=== PATIENT | female | born 2000 | race Caucasian/White ===

== ENCOUNTER 2019-11-20 17:14 | Emergency (ER) | payer BC ==
[2019-11-20] MEDS ORDERED: SODIUM CHLORIDE 0.9% 1,000 ML IV ONE (18:24)
[2019-11-20 19:11] LABS: Basophils # (A) 0.1 k/uL (0-0.2); Basophils % (A) 1 %; Eosinophils # (A) 0.9 k/uL (0-0.7); Eosinophils % (A) 8 %; HCT 44.4 % (34.0-46.0); HGB 15.2 gm/dL (11.4-16.0); Lymphocytes # (A) 2.6 k/uL (1.0-4.8); Lymphocytes % (A) 23 %; MCH 30.8 pg (25.0-35.0); MCHC 34.2 g/dL (31.0-37.0); Monocytes # (A) 0.5 k/uL (0-1.0); Monocytes % (A) 4 %; Neutrophils # (A) 7.2 k/uL (1.3-7.7); Neutrophils % (A) 63 %; Platelet Count 360 k/uL (150-450); RBC 4.93 m/uL (3.80-5.40); RDW 12.9 % (11.5-15.5); WBC 11.4 k/uL (3.8-10.6)
[2019-11-20 19:24] LABS: ALT 135 U/L (4-34); AST 78 U/L (14-36); African American GFR (CKD) >90 (>60 ml/min/1.73 sqM); Albumin 4.9 g/dL (3.5-5.0); Alkaline Phosphatase 96 U/L (38-126); Anion Gap 10 mmol/L; Blood Urea Nitrogen 12 mg/dL (7-17); Calcium 9.5 mg/dL (8.4-10.2); Carbon Dioxide 24 mmol/L (22-30); Chloride 104 mmol/L (98-107); Glucose 78 mg/dL (74-99); Non-African American GFR(CKD) >90 (>60 ml/min/1.73 sqM); Potassium 4.2 mmol/L (3.5-5.1); Sodium 138 mmol/L (137-145); Total Bilirubin 0.5 mg/dL (0.2-1.3); Total Protein 8.3 g/dL (6.3-8.2)
[2019-11-20 19:39] LABS: INR 0.9 (<1.2); Partial Thromboplastin Time 24.6 sec (22.0-30.0); Prothrombin Time 9.8 sec (9.0-12.0)
--- NOTE | 2019-11-20 20:25 | US ---
EXAMINATION TYPE: US transvaginal DATE OF EXAM: 11/20/2019 COMPARISON: NONE CLINICAL HISTORY: Heavy vaginal bleeding. Heavy vaginal bleeding. Patient is on day 14 of bleeding. TECHNIQUE: Transvaginal (TV). Date of LMP: 11/06/2019 EXAM MEASUREMENTS: Uterus: 7.3 x 4.7 x 4.1 cm Endometrial Stripe: 1.04 cm Right Ovary: 4.0 x 2.4 x 2.8 cm Left Ovary: 3.9 x 2.5 x 2.8 cm 1. Uterus: Retroverted Hypoechoic areas seen in the cervix. Largest: 0.6 x 0.6 x 0.8 cm. 2. Endometrium: Measures 1.04 cm. Measures thick. 3. Right Ovary: Measures slightly enlarged. Follicles seen. 4. Left Ovary: Measures slightly enlarged. Follicles seen. Spectral, color and waveform doppler imaging shows arterial and venous flow within the ovaries; the re is no evidence for ovarian torsion. 5. Bilateral Adnexa: Appear to be wnl. 6. Posterior cul-de-sac: Fluid is seen. IMPRESSION: No adnexal mass or free fluid. No evidence of ovarian torsion. Normal endometrium.
--- NOTE | 2019-11-20 20:40 | ED ---
General Adult HPI - General Chief complaint: Vaginal Bleeding Stated complaint: excessive menstrual bleeding Time Seen by Provider: 11/20/19 18:12 Source: patient Mode of arrival: ambulatory Limitations: no limitations - History of Present Illness Initial comments: 19-year-old female patient presents to the emergency department today for evaluation of heavy vaginal bleeding for the last 2 weeks. Patient states that she started her period at the normal time however the bleeding was heavier than usual. States that she is passing clots the size of quarters. States that the bleeding has been heavy every day since its onset. States that she is changing her pad every hour. Patient states she is having lower abdominal cramping consistent with her usual menstrual cramping. She denies any fever or chills. Patient states she has been feeling somewhat more weak and rundown than usual. She denies any history of clotting disorders. Denies any use of anticoagulants or antiplatelet medications. Patient states she has currently being evaluated for possible vasovagal syndrome versus seizures. Patient denies any recent rash, fever, chills, shortness breath, chest pain, nausea, vomiting, diarrhea, constipation, back pain, numbness, tingling, dizziness, hematuria, dysuria, urinary urgency, urinary frequency, headache, visual changes, or any other complaints. - Related Data Allergies Allergy/AdvReac Type Severity Reaction Status Date / Time No Known Allergies Allergy Verified 11/20/19 17:43 Review of Systems ROS Statement: Those systems with pertinent positive or pertinent negative responses have been documented in the HPI. ROS Other: All systems not noted in ROS Statement are negative. Past Medical History Past Medical History: No Reported History History of Any Multi-Drug Resistant Organisms: None Reported Additional Past Surgical History / Comment(s): possible seizure disorder Past Psychological History: Anxiety, Depression Smoking Status: Never smoker Past Alcohol Use History: None Reported Past Drug Use History: Marijuana General Exam Limitations: no limitations General appearance: alert, in no apparent distress, other (This is a well- developed, well-nourished adult female patient in no acute distress, however vital signs upon presentation are temperature 98.5F, pulse 74, respirations 16, blood pressure 146/79, pulse ox 97% on room air.) Eye exam: Present: normal appearance, PERRL, EOMI. Absent: scleral icterus, conjunctival injection, periorbital swelling ENT exam: Present: normal exam, normal oropharynx, mucous membranes moist Respiratory exam: Present: normal lung sounds bilaterally. Absent: respiratory distress, wheezes, rales, rhonchi, stridor Cardiovascular Exam: Present: regular rate, normal rhythm, normal heart sounds. Absent: systolic murmur, diastolic murmur, rubs, gallop, clicks GI/Abdominal exam: Present: soft, normal bowel sounds. Absent: distended, tenderness, guarding, rebound, rigid External exam: Present: normal external exam Speculum exam: Present: vaginal bleeding (Moderate dark red vaginal bleeding, small clots noted in the vaginal vault.), other (Cervix appears normal) Neurological exam: Present: alert, oriented X3, CN II-XII intact Psychiatric exam: Present: normal affect, normal mood Skin exam: Present: warm, dry, intact, normal color. Absent: rash Course Vital Signs 11/20/19 11/20/19 17:41 20:56 Temperature 98.5 F 98.4 F Pulse Rate 74 72 Respiratory 16 18 Rate Blood Pressure 146/79 132/78 O2 Sat by Pulse 97 100 Oximetry Medical Decision Making - Medical Decision Making 19-year-old female patient presented to the emergency department today for evaluation of heavy vaginal bleeding for the last 2 weeks. Physical examination reveals mild suprapubic abdominal tenderness. Skin is pink, warm, dry. Vital signs are within normal ranges. Labs reviewed and are unremarkable. HCG is negative. Ultrasound was obtained and showed no abnormalities. Patient did take 3 days of a control medication regimen a side effects and had to stop this. We discuss this as a cause for her symptoms. She'll be discharged vomited franchise business consultant or her primary care physician for recheck in 1-2 days. Return parameters were discussed in detail. She verbalizes understanding and agrees with this plan. - Lab Data Result diagrams: 11/20/19 18:40 11/20/19 18:40 Lab Results 11/20/19 11/20/19 11/20/19 Range/Units 18:40 18:40 18:40 WBC 11.4 H (3.8-10.6) k/uL RBC 4.93 (3.80-5.40) m/uL Hgb 15.2 (11.4-16.0) gm/dL Hct 44.4 (34.0-46.0) % MCV 90.0 (80.0-100.0) fL MCH 30.8 (25.0-35.0) pg MCHC 34.2 (31.0-37.0) g/dL RDW 12.9 (11.5-15.5) % Plt Count 360 (150-450) k/uL Neutrophils % 63 % Lymphocytes % 23 % Monocytes % 4 % Eosinophils % 8 % Basophils % 1 % Neutrophils # 7.2 (1.3-7.7) k/uL Lymphocytes # 2.6 (1.0-4.8) k/uL Monocytes # 0.5 (0-1.0) k/uL Eosinophils # 0.9 H (0-0.7) k/uL Basophils # 0.1 (0-0.2) k/uL PT (9.0-12.0) sec INR (<1.2) APTT (22.0-30.0) sec Sodium 138 (137-145) mmol/L Potassium 4.2 (3.5-5.1) mmol/L Chloride 104 (98-107) mmol/L Carbon Dioxide 24 (22-30) mmol/L Anion Gap 10 mmol/L BUN 12 (7-17) mg/dL Creatinine 0.74 (0.52-1.04) mg/dL Est GFR (CKD-EPI)AfAm >90 (>60 ml/min/1.73 sqM) Est GFR (CKD-EPI)NonAf >90 (>60 ml/min/1.73 sqM) Glucose 78 (74-99) mg/dL Calcium 9.5 (8.4-10.2) mg/dL Total Bilirubin 0.5 (0.2-1.3) mg/dL AST 78 H (14-36) U/L ALT 135 H (4-34) U/L Alkaline Phosphatase 96 (38-126) U/L Total Protein 8.3 H (6.3-8.2) g/dL Albumin 4.9 (3.5-5.0) g/dL Urine HCG, Qual Not Detected (Not Detectd) 11/20/19 Range/Units 18:40 WBC (3.8-10.6) k/uL RBC (3.80-5.40) m/uL Hgb (11.4-16.0) gm/dL Hct (34.0-46.0) % MCV (80.0-100.0) fL MCH (25.0-35.0) pg MCHC (31.0-37.0) g/dL RDW (11.5-15.5) % Plt Count (150-450) k/uL Neutrophils % % Lymphocytes % % Monocytes % % Eosinophils % % Basophils % % Neutrophils # (1.3-7.7) k/uL Lymphocytes # (1.0-4.8) k/uL Monocytes # (0-1.0) k/uL Eosinophils # (0-0.7) k/uL Basophils # (0-0.2) k/uL PT 9.8 (9.0-12.0) sec INR 0.9 (<1.2) APTT 24.6 (22.0-30.0) sec Sodium (137-145) mmol/L Potassium (3.5-5.1) mmol/L Chloride (98-107) mmol/L Carbon Dioxide (22-30) mmol/L Anion Gap mmol/L BUN (7-17) mg/dL Creatinine (0.52-1.04) mg/dL Est GFR (CKD-EPI)AfAm (>60 ml/min/1.73 sqM) Est GFR (CKD-EPI)NonAf (>60 ml/min/1.73 sqM) Glucose (74-99) mg/dL Calcium (8.4-10.2) mg/dL Total Bilirubin (0.2-1.3) mg/dL AST (14-36) U/L ALT (4-34) U/L Alkaline Phosphatase (38-126) U/L Total Protein (6.3-8.2) g/dL Albumin (3.5-5.0) g/dL Urine HCG, Qual (Not Detectd) - Radiology Data Radiology results: report reviewed, image reviewed Ultrasound of the pelvis was obtained. Report was reviewed in its entirety. Impression by Dr. Cabrales shows no adnexal mass or free fluid. No evidence of ovarian torsion. Normal endometrium. Disposition Clinical Impression: Dysfunctional uterine bleeding Disposition: HOME SELF-CARE Condition: Good Instructions (If sedation given, give patient instructions): Dysfunctional Uterine Bleeding (ED) Additional Instructions: Increase fluids. Rest. Follow-up with franchise business consultant or your primary care physician for further evaluation. Return to the emergency department immediately for any new, worsening, or concerning symptoms. Is patient prescribed a controlled substance at d/c from ED?: No Referrals: Thuan Chirinos MD [STAFF PHYSICIAN] - 1-2 days Time of Disposition: 20:40
[2019-11-20 20:58] VITALS: BP 132/78; PULSE 72; RESP 18; TEMP 98.4
== END 2019-11-20 20:58 | disposition home or self-care (01) ==
LOC: EC 17:14
DX: N93.8 Other specified abnormal uterine and vaginal bleeding (principal); Z32.02 Encounter for pregnancy test, result negative
CPT/HCPCS: 36415; 76830; 80053; 81025; 85025; 85610; 85730; 93975; 96360; 96361; 99284